=== PATIENT | female | born 1955 | race Caucasian/White ===

== ENCOUNTER 2021-09-12 06:18 | Day surgery (SDC) | payer MEDICARE, SELFPAY ==
--- NOTE | 2021-09-10 15:33 | P.CONAN_ITS ---
Documented by User: Mechelle Don NP 09/10/21 15:34 HPI - Anesthesia Eval Consult details Narrative: 66yo F for Colonoscopy with antibiotics [facility] Past Medical History Medical History (Updated 09/05/21 @ 15:37 by Magnolia Pérez, RN) Acne rosacea HTN (hypertension) Surgical History Surgical History (Updated 09/05/21 @ 15:36 by Magnolia Préez, RN) History of endometrial ablation History of total left knee replacement History of total right knee replacement Hx of cholecystectomy Hx of colonoscopy Social History Social History Patient Tobacco Use Status: Never used Tobacco Use of substances other than those prescribed or required for medical reasons: No Are you DNR?: No Advance Directives: No Advance Directives Information Provided: Yes Meds Allergies Allergy/AdvReac Type Severity Reaction Status Date / Time lisinopril Allergy Unknown Cough Verified 09/12/21 06:38 Home Medications Medication Instructions Recorded Confirmed Last Taken Type amlodipine 10 mg tablet 10 mg PO DAILY 09/05/21 09/05/21 Unknown History Exam Exam Date and Time: September 10, 2021 153 Assessment and Plan Assessment Anesthesia Assessment: Chart Reviewed Documented by User: Marquita Foster MD 09/12/21 08:16 [facility] Active Problems Active Problems: Increased BMI Past Medical History Medical History (Updated 09/05/21 @ 15:37 by Magnolia Pérez RN) Acne rosacea HTN (hypertension) Family History Family history of problems with anesthesia: No Surgical History Surgical History (Updated 09/05/21 @ 15:36 by Magnolia Pérez RN) History of endometrial ablation History of total left knee replacement History of total right knee replacement Hx of cholecystectomy Hx of colonoscopy History of Problems with Anesthesia: No Social History Social History Patient Tobacco Use Status: Never used Tobacco Use of substances other than those prescribed or required for medical reasons: No Are you DNR?: No Advance Directives: No Advance Directives Information Provided: Yes Meds Allergies Allergy/AdvReac Type Severity Reaction Status Date / Time lisinopril Allergy Unknown Cough Verified 09/12/21 06:38 Home Medications Medication Instructions Recorded Confirmed Last Taken Type amlodipine 10 mg tablet 10 mg PO DAILY 09/05/21 09/05/21 Unknown History Exam Height,Weight and Vital Signs: Height 5 ft 5 in Weight 103.419 kg Vital Signs Temp Pulse Resp BP Pulse Ox 09/12/21 06:49 97.2 F 86 16 160/85 H 97 Airway Mallampati Class: II TM Dist: >3cm Neck ROM: Full Loose/Missing/Broken Teeth: No Heart: RRR Lungs: CTAB Assessment and Plan Assessment Anesthesia Assessment: Anesthesia Plan Discussed Final Anesthetic Review Family History of Problems with Anesthesia: No History of Problems with Anesthesia: No NPO: Yes ASA Class: III Final Preanesthetic Review: No Changes in Pt Med Stat, Meds/Allgs Chart Reviewed, Consent Obtained/Reviewed and Anes Risks/Benef Reviewed Patient Risk: Intermediate Procedure Risk: Low Assessment/Block/Sedation in SS: Assess/Block/Sedation-SS Anesthetic Plan Anesthetic Plan: MAC: Disposition: Standard PACU
[2021-09-12 06:49] VITALS: BP 160/85; PULSE 86; RESP 16; TEMP 36.2; O2SAT 97; BMI 37.9
[2021-09-12] MEDS: Gentamicin Sulfate/NaCl 80 MG/100 ML PIGGYBACK 100 MG IV (06:58)
[2021-09-12] MEDS: Lactated Ringers 1,000 ML 100 ML IVCONT (07:00)
[2021-09-12] MEDS: Ampicillin Sodium 2 GM in 0.9 % Sodium Chloride 100 ML IV (07:19)
[2021-09-12 09:35] VITALS: BP 107/69; PULSE 58; RESP 20; TEMP 36.3; O2SAT 98
--- NOTE | 2021-09-12 09:38 | PM.OP ---
Brief Operative Note Date of Service: 09/12/21 Pre-op diagnosis: Screening Post-op diagnosis: other (Colon polyps) Procedure: Colonoscopy to the cecum and TI with bx/removal of polyp, and hot snare polypectomy at 40cm with placement of 2 Resolution clips Surgeon: Rajeev Han Anesthesia: MAC Was an Foundry Supervisor used for this Procedure?: No Estimated blood loss (mL): 3.0 Pathology: other (A. Ascending colon polyp B. Polyp at 40cm) Condition: stable Disposition: PACU
[2021-09-12 09:50] VITALS: BP 126/78; PULSE 62; RESP 20; TEMP 36.3; O2SAT 98
--- NOTE | 2021-09-12 11:28 | OP_ITS ---
SURGEON: Rajeev Han MD INDICATIONS: The patient presents for evaluation of colorectal cancer screening, personal history of tubular adenoma of the colon, and family history of colon cancer. Full consent has been obtained from her for this, including risks of bleeding and perforation. PREOPERATIVE DIAGNOSIS: POSTOPERATIVE DIAGNOSIS: PROCEDURE PERFORMED: Colonoscopy to the cecum and terminal ileum with snare polypectomy, biopsy and removal of polyp, and placement of 2 resolution clips on the polypectomy site at 40 cm. ESTIMATED BLOOD LOSS: COMPLICATIONS: ANESTHESIA: Monitored anesthesia care. ASSISTANTS: SPECIMENS: PREOPERATIVE DIAGNOSES: Colorectal cancer screening, personal history of tubular adenoma of the colon, and family history of colon cancer. POSTOPERATIVE DIAGNOSES: Colorectal cancer screening, personal history of tubular adenoma of the colon, and family history of colon cancer, colon polyps, diverticulosis, and internal hemorrhoids. DESCRIPTION OF PROCEDURE: The patient was placed in the left lateral decubitus position. The digital rectal exam revealed no abnormalities. The [employer] video pediatric colonoscope was entered into the rectum and advanced easily to the cecum. Once in the cecum, I did identify normal-appearing cecal pouch with appendiceal orifice and a normal-appearing ileocecal valve. The terminal ileum was cannulated and appeared normal. Scope was withdrawn back in the colon. The entire cecum and ileocecal valve appeared normal. The scope was slowly withdrawn assessing all mucosal surfaces carefully. Preparation was excellent. In the ascending colon, was a flat approximately 4 mm polyp, which was biopsied and completely removed with cold biopsy forceps. At 40 cm, was an approximately 1.5 cm polyp on a relatively broad stalk. The great majority of this was snared and removed, and then recovered with the retrieval net and brought out of the patient. The scope was advanced back to the polypectomy site. There was some residual polyp, which was then snared and removed and recovered by suction. There was no sign of any residual polyp nor any bleeding, but I did place 2 resolution clips onto the polypectomy site with good deployment and good hemostasis. I did not visualize any other polyps, colitis, nor angiodysplasia. There was a mild amount of sigmoid diverticulosis. In the rectum, scope was retroflexed visualizing internal hemorrhoids, but no other pathology. The rectal mucosa appeared normal. The scope was straightened out and withdrawn from the patient. She tolerated the procedure well and was returned to the recovery area in stable condition. IMPRESSION: 1. Colon polyps, status post snare polypectomy, and biopsy and removal. 2. Diverticulosis. 3. Internal hemorrhoids. PLAN: The results of the pathology will be checked. I would recommend a repeat colonoscopy within 5 years for further surveillance. She was advised not to use any aspirin and NSAIDs for 1 week. MD DEVIN Doyle/ERWIN / [id number]
== END 2021-09-12 10:25 | disposition home or self-care (01) ==
PROVIDERS: PCP Family Medicine Adult Medicine; Visit Provider Internal Medicine
PROC: 0DJD8ZZ Inspection of Lower Intestinal Tract, Via Natural or Artificial Opening Endoscopic (ICD-10-PCS; CPT 45378; principal; 2021-09-12 08:20)
DX: Z12.11 Encounter for screening for malignant neoplasm of colon (principal); Z86.010 Personal history of colon polyps; Z80.0 Family history of malignant neoplasm of digestive organs; D12.5 Benign neoplasm of sigmoid colon; K63.5 Polyp of colon; K57.30 Diverticulosis of large intestine without perforation or abscess without bleeding; K64.8 Other hemorrhoids; I10 Essential (primary) hypertension; L71.9 Rosacea, unspecified; Z90.49 Acquired absence of other specified parts of digestive tract
CPT/HCPCS: 45385; 45380; 88305; J0290; J1580

== ENCOUNTER 2022-08-26 14:28 | Outpatient (REF) | payer MEDICARE, SELFPAY ==
[2022-08-26 15:00] LABS: MANUAL DIFF FLAG NO
[2022-08-26 15:26] LABS: Basophils Absolute Auto 0.1 X10*3/uL (0.0-0.2); Basophils Percent Auto 0.8 % (0-2); Eosinophils Absolute Auto 0.2 X10*3/uL (0.0-0.4); Eosinophils Percent Auto 2.5 % (0-4); Hematocrit 44.1 % (37.0-47.0); Hemoglobin 14.5 g/dl (12.0-16.0); Imm Gran Abs Auto 0.04 X10*3/uL (0.00-0.03); Imm Gran Pct Auto 0.5 % (0.0-0.4); Lymphocytes Absolute Auto 2.7 X10*3/uL (1.2-4.9); Lymphocytes Percent Auto 34.9 % (20-40); Mean Corpuscular HGB Conc 32.9 g/dl (31.0-35.0); Mean Corpuscular Hemoglobin 29.4 pg (27.0-33.0); Mean Corpuscular Volume 89.5 fL (80.0-98.0); Mean Platelet Volume 11.2 fL (9.4-12.3); Monocytes Absolute Auto 0.4 X10*3/uL (0.1-1.2); Monocytes Percent Auto 5.4 % (2-11); Neutrophils Absolute Auto 4.3 x10*3/uL (2.0-8.3); Neutrophils Percent Auto 55.9 % (45-73); Platelet Count 257 X10*3/uL (160-400); Red Blood Count 4.93 X10*6/uL (4.20-5.50); Red Cell Distribution Width 12.5 % (11.0-16.0); White Blood Count 7.7 X10*3/uL (4.8-10.8)
[2022-08-26 15:47] LABS: C Reactive Protein 0.53 mg/dL (< or = 0.50)
[2022-08-26 16:08] LABS: Erythrocyte Sedimentation Rate 8 MM/HR (0-20)
[2022-08-28 12:57] LABS: Gliadin Deamidated IgA Ab <1.0 U/mL; Gliadin Deamidated IgG Ab <1.0 U/mL; Transglutaminase Ab IgG <1.0 U/mL; Transglutaminase IgA <1.0 U/mL
[2022-08-28 14:56] LABS: Immunoglobulin A 198 mg/dL (70-320)
[2022-09-01 15:27] LABS: Endomysial IgA Antibody Negative (Negative)
== END 2022-08-26 14:29 | disposition home or self-care (01) ==
LOC: HO.LAB 14:28
PROVIDERS: PCP Family Medicine Adult Medicine; Visit Provider Internal Medicine
DX: R19.7 Diarrhea, unspecified (principal); R19.4 Change in bowel habit
CPT/HCPCS: 36415; 82784; 85025; 85652; 86140; 86231; 86258; 86364

== ENCOUNTER 2022-10-19 08:28 | Day surgery (SDC) | payer MEDICARE, SELFPAY ==
--- NOTE | 2022-10-16 12:25 | HO.ANESPROP2 ---
Documented by User: Mechelle Don NP 10/16/22 12:27 HPI - Anesthesia Eval Consult details Narrative: 67yo F for Colonoscopy [facility] Past Medical History Medical History (Updated 09/05/21 @ 15:37 by Magnolia Pérez, MUNIR) Acne rosacea HTN (hypertension) Family History Family history of problems with anesthesia: No Surgical History Surgical History (Updated 09/05/21 @ 15:36 by Magnolia Pérez RN) History of endometrial ablation History of total left knee replacement History of total right knee replacement Hx of cholecystectomy Hx of colonoscopy History of Problems with Anesthesia: No Social History Social History Patient Tobacco Use Status: Never used Tobacco Use of substances other than those prescribed or required for medical reasons: No Are you DNR?: No Advance Directives: No Advance Directives Information Provided: Yes Meds Allergies Allergy/AdvReac Type Severity Reaction Status Date / Time lisinopril Allergy Unknown Cough Verified 09/12/21 06:38 Home Medications Medication Instructions Recorded Confirmed Last Taken Type amlodipine 10 mg tablet 10 mg PO DAILY 09/05/21 09/05/21 10/19/22 History fexofenadine 180 mg tablet mg 10/16/22 10/16/22 Unknown History (Maria Victoria Allergy) Exam Exam Date and Time: October 16, 2022 1225 Pertinent Lab Results Pertinent Lab Results: Laboratory Tests 08/26/22 14:58 WBC 7.7 Hgb 14.5 Hct 44.1 Plt Count 257 Assessment and Plan Assessment Anesthesia Assessment: Chart Reviewed Final Anesthetic Review Family History of Problems with Anesthesia: No History of Problems with Anesthesia: No Documented by User: Ricki Eller MD 10/19/22 09:55 [facility] Past Medical History Medical History (Updated 09/05/21 @ 15:37 by Magnolia Pérez, MUNIR) Acne rosacea HTN (hypertension) Surgical History Surgical History (Updated 09/05/21 @ 15:36 by Magnolia Pérez RN) History of endometrial ablation History of total left knee replacement History of total right knee replacement Hx of cholecystectomy Hx of colonoscopy Social History Social History Patient Tobacco Use Status: Never used Tobacco Use of substances other than those prescribed or required for medical reasons: No Are you DNR?: No Advance Directives: No Advance Directives Information Provided: Yes Meds Allergies Allergy/AdvReac Type Severity Reaction Status Date / Time lisinopril Allergy Unknown Cough Verified 09/12/21 06:38 Home Medications Medication Instructions Recorded Confirmed Last Taken Type amlodipine 10 mg tablet 10 mg PO DAILY 09/05/21 09/05/21 10/19/22 History fexofenadine 180 mg tablet mg 10/16/22 10/16/22 Unknown History (Maria Victoria Allergy) Exam Airway Mallampati Class: II TM Dist: >3cm Neck ROM: Full Heart: rrr Lungs: clear Assessment and Plan Final Anesthetic Review NPO: Yes ASA Class: II Final Preanesthetic Review: No Changes in Pt Med Stat, Meds/Allgs Chart Reviewed, Consent Obtained/Reviewed and Anes Risks/Benef Reviewed Patient Risk: Intermediate Procedure Risk: Low Anesthetic Plan Anesthetic Plan: MAC: Disposition: Standard PACU
[2022-10-19 08:46] VITALS: BMI 38.2
[2022-10-19] MEDS: Lactated Ringers 1,000 ML 100 ML IVCONT (09:12)
--- NOTE | 2022-10-19 10:39 | PM.OP ---
Brief Operative Note Date of Service: 10/19/22 Pre-op diagnosis: Screening Post-op diagnosis: other (R/O microscopic colitis, Diverticulosis) Procedure: Colonoscopy to the cecum and TI with biopsies Surgeon: Rajeev Han Anesthesia: MAC Was an Voice And Data Technician used for this Procedure?: No Estimated blood loss (mL): 2.0 Pathology: other (A. Ascending colon B. Descending colon) Condition: stable Disposition: PACU
[2022-10-19 10:42] VITALS: BP 126/76; PULSE 78; RESP 20; TEMP 37.3; O2SAT 98
[2022-10-19 11:03] VITALS: BP 123/71; PULSE 66; RESP 18; TEMP 36.4; O2SAT 97
--- NOTE | 2022-10-19 11:24 | OP_ITS ---
SURGEON: Rajeev Han MD INDICATIONS: The patient presents for followup of personal history of tubular adenoma of the colon, family history of colon cancer, and intermittent diarrhea. Full consent has been obtained from her for this, including risks of bleeding and perforation. PREOPERATIVE DIAGNOSIS: POSTOPERATIVE DIAGNOSIS: PROCEDURE PERFORMED: Colonoscopy to the cecum and terminal ileum with biopsies. ESTIMATED BLOOD LOSS: COMPLICATIONS: ANESTHESIA: Monitored anesthesia care. ASSISTANTS: SPECIMENS: PREOPERATIVE DIAGNOSES: Personal history of tubular adenoma of the colon, family history of colon cancer, and change in bowel habits. POSTOPERATIVE DIAGNOSES: Personal history of tubular adenoma of the colon, family history of colon cancer, and change in bowel habits, rule out microscopic colitis, diverticulosis, and internal hemorrhoids. DESCRIPTION OF PROCEDURE: The patient was placed in the left lateral decubitus position. The digital rectal exam revealed no abnormalities. The Olympus video pediatric colonoscope was entered into the rectum and advanced easily to the cecum. Once in the cecum, I did identify a normal-appearing cecal pouch with appendiceal orifice and a normal-appearing ileocecal valve. The terminal ileum was cannulated and appeared normal. The scope was withdrawn back in the colon. The entire cecum and ileocecal valve appeared normal. The scope was slowly withdrawn assessing all mucosal surfaces carefully. Preparation was excellent. I did not visualize any sign of polyps, colitis, nor angiodysplasia. Random biopsies were obtained in the ascending and descending colon. There was a moderate amount of sigmoid diverticulosis. In the rectum, scope was retroflexed visualizing internal hemorrhoids, but no other pathology. The rectal mucosa appeared normal. The scope was straightened and withdrawn from the patient. She tolerated the procedure well and was returned to the recovery area in stable condition. IMPRESSION: 1. Diverticulosis. 2. Internal hemorrhoids. PLAN: Given her previous history and family history, I would recommend a followup colonoscopy in 3 years. The results of the biopsies will be checked. I suspect these will be normal in regard to the history of intermittent diarrhea. If by chance, they show microscopic colitis, then I would follow her up in the office for that. If the biopsies are normal, I would instruct her to use the [id number] Imodium as needed, as well as watching her diet and avoid anything such as greasy foods and dairy. I did advise her to contact me if the diarrhea worsens. We could consider adding something such as cholestyramine if need be. If things are stable, I will see her in 3 years for a followup colonoscopy. This has been discussed with her . MD DEVIN Doyle/ERWIN / [id number]
== END 2022-10-19 12:00 | disposition home or self-care (01) ==
PROVIDERS: PCP Family Medicine Adult Medicine; Visit Provider Internal Medicine
PROC: 0DJD8ZZ Inspection of Lower Intestinal Tract, Via Natural or Artificial Opening Endoscopic (ICD-10-PCS; CPT 45378; principal; 2022-10-19 09:30)
DX: Z12.11 Encounter for screening for malignant neoplasm of colon (principal); K57.30 Diverticulosis of large intestine without perforation or abscess without bleeding; K64.8 Other hemorrhoids; R19.7 Diarrhea, unspecified; Z86.010 Personal history of colon polyps; Z80.0 Family history of malignant neoplasm of digestive organs; I10 Essential (primary) hypertension; Z79.899 Other long term (current) drug therapy; Z96.653 Presence of artificial knee joint, bilateral; Z88.8 Allergy status to other drugs, medicaments and biological substances
CPT/HCPCS: 45380; 88302; 88305

== ENCOUNTER 2025-10-22 06:20 | Day surgery (SDC) | payer MEDICARE, SELFPAY ==
[2025-10-18 14:18] VITALS: BMI 38.2
--- NOTE | 2025-10-19 08:04 | HO.ANESPROP2 ---
Documented by User: Mechelle Don NP 10/19/25 08:04 HPI - Anesthesia Eval Consult details Narrative: 70yo F for Colonoscopy [facility] Past Medical History Medical History Acne rosacea HTN (hypertension) Family History Family history of problems with anesthesia: No Surgical History Surgical History History of endometrial ablation Hx of cholecystectomy History of total left knee replacement History of total right knee replacement Hx of colonoscopy History of Problems with Anesthesia: No Social History Social History Patient Tobacco Use Status: Never used Tobacco Use of substances other than those prescribed or required for medical reasons: No Advance Directives: No Advance Directives Information Provided: Yes Meds Allergies Allergy/AdvReac Type Severity Reaction Status Date / Time lisinopril AdvReac Intermediate Cough Verified 10/18/25 14:19 Home Medications ?Medication ?Instructions ?Recorded ?Confirmed ?Last Taken ?Type amlodipine 10 mg tablet 10 mg PO DAILY 09/05/21 10/18/25 10/19/22 History ergocalciferol (vitamin D2) 1,250 1,250 mcg PO QWEEK 10/18/25 10/18/25 Unknown History mcg (50,000 unit) capsule (Vitamin D2) Zepbound 0.5 mg 10/22/25 10/14/25 History Exam Height,Weight and Vital Signs: Height 5 ft 5 in Weight 104.145 kg Assessment and Plan Assessment Anesthesia Assessment: Chart Reviewed Final Anesthetic Review Family History of Problems with Anesthesia: No History of Problems with Anesthesia: No Documented by User: Lupe Clark MD 10/22/25 07:29 [facility] Past Medical History Medical History Acne rosacea HTN (hypertension) Surgical History Surgical History History of endometrial ablation Hx of cholecystectomy History of total left knee replacement History of total right knee replacement Hx of colonoscopy Social History Social History Patient Tobacco Use Status: Never used Tobacco Use of substances other than those prescribed or required for medical reasons: No Advance Directives: No Advance Directives Information Provided: Yes Meds Allergies Allergy/AdvReac Type Severity Reaction Status Date / Time lisinopril AdvReac Intermediate Cough Verified 10/18/25 14:19 Home Medications ?Medication ?Instructions ?Recorded ?Confirmed ?Last Taken ?Type amlodipine 10 mg tablet 10 mg PO DAILY 09/05/21 10/18/25 10/19/22 History ergocalciferol (vitamin D2) 1,250 1,250 mcg PO QWEEK 10/18/25 10/18/25 Unknown History mcg (50,000 unit) capsule (Vitamin D2) Zepbound 0.5 mg 10/22/25 10/14/25 History Exam Airway Mallampati Class: II TM Dist: >3cm Neck ROM: Full Loose/Missing/Broken Teeth: No Heart: RRR Lungs: CTA Assessment and Plan Assessment Anesthesia Assessment: Anesthesia Plan Discussed Final Anesthetic Review NPO: Yes ASA Class: II Final Preanesthetic Review: Meds/Allgs Chart Reviewed, Consent Obtained/Reviewed and Anes Risks/Benef Reviewed Patient Risk: Low Procedure Risk: Low Anesthetic Plan Anesthetic Plan: MAC: Disposition: Standard PACU
[2025-10-22 06:39] VITALS: BMI 34.9
[2025-10-22 06:54] VITALS: BP 142/90; PULSE 95; RESP 15; TEMP 36.3; O2SAT 100
[2025-10-22] MEDS: Lactated Ringers 1,000 ML 100 ML IVCONT (06:55)
[2025-10-22 08:33] VITALS: BP 100/61; PULSE 73; RESP 18; TEMP 36.3; O2SAT 98
--- NOTE | 2025-10-22 08:42 | PM.OP ---
Brief Operative Note Date of Service: 10/22/25 Pre-op diagnosis: Screening Post-op diagnosis: other (Same, Diverticulosis) Procedure: Colonoscopy to the cecum and TI Surgeon: Rajeev Han MD Anesthesia: MAC Was an Business Professor used for this Procedure?: No Estimated blood loss (mL): 0 Pathology: none sent Condition: stable Disposition: PACU
[2025-10-22 08:51] VITALS: BP 119/64; PULSE 69; RESP 18; TEMP 36.3; O2SAT 98
--- NOTE | 2025-10-22 08:55 | OP_ITS ---
DATE OF SERVICE: 10/22/2025 SURGEON: Rajeev Han MD INDICATIONS: The patient presents for evaluation of colorectal cancer screening, personal history of tubular adenoma of the colon, and family history of colon cancer. Full consent obtained from her for this, including risks of bleeding and perforation. PREOPERATIVE DIAGNOSIS: POSTOPERATIVE DIAGNOSIS: PROCEDURE PERFORMED: Colonoscopy to the cecum and terminal ileum. ESTIMATED BLOOD LOSS: COMPLICATIONS: ANESTHESIA: Monitored anesthesia care. ASSISTANTS: SPECIMENS: PREOPERATIVE DIAGNOSES: Colorectal cancer screening, personal history of tubular adenoma of the colon, family history of colon cancer. POSTOPERATIVE DIAGNOSES: Colorectal cancer screening, personal history of tubular adenoma of the colon, family history of colon cancer, diverticulosis and internal hemorrhoids. DESCRIPTION OF PROCEDURE: The patient was placed in the left lateral decubitus position. The digital rectal exam revealed no abnormalities. The Olympus video pediatric colonoscope was entered into the rectum and advanced easily to the cecum. Once in the cecum, I did identify normal-appearing cecal pouch with appendiceal orifice and a normal-appearing ileocecal valve. The terminal ileum was cannulated and appeared normal. Scope was withdrawn back into the colon. The entire cecum and ileocecal valve appeared normal. The scope was slowly withdrawn assessing all mucosal surfaces carefully. Preparation was excellent. I did not visualize any sign of polyps, colitis, nor angiodysplasia. There was a mild amount of sigmoid diverticulosis. In the rectum, scope was retroflexed visualizing internal hemorrhoids, but no other pathology. The rectal mucosa appeared normal. The scope was straightened and withdrawn from the patient. She tolerated the procedure well and was returned to recovery area in stable condition. IMPRESSION: 1. Diverticulosis. 2. Internal hemorrhoids. PLAN: Given her previous history of colon polyps and family history of colon cancer, I would recommend a repeat colonoscopy in 3 years for further screening purposes. She will otherwise see me as needed. This has been discussed with her . MD DEVIN Doyle/ERWIN / [id number] MTDD
== END 2025-10-22 09:26 | disposition home or self-care (01) ==
PROVIDERS: Visit Provider Internal Medicine
PROC: 0DJD8ZZ Inspection of Lower Intestinal Tract, Via Natural or Artificial Opening Endoscopic (ICD-10-PCS; CPT 45378; principal; 2025-10-22 07:30)
DX: Z12.11 Encounter for screening for malignant neoplasm of colon (principal); Z80.0 Family history of malignant neoplasm of digestive organs; K57.30 Diverticulosis of large intestine without perforation or abscess without bleeding; K64.8 Other hemorrhoids
CPT/HCPCS: G0105; J2003; J2704